=== PATIENT | female | born 1990 | race Caucasian/White ===

== ENCOUNTER 2023-03-01 23:38 | Emergency (ER) | payer OTHER ==
[~2023-03-01] VITALS: Ht 157.5 cm; Wt 102.1 kg
[2023-03-01 23:41] VITALS: O2SAT 98
--- NOTE | 2023-03-01 23:54 | NUR ---
Dr. Young at bedside exam in progress.
--- NOTE | 2023-03-01 23:54 | NUR ---
HR 86 SBP of 116/80, RR 16. patient barely responding to questions.
[2023-03-02] MEDS ORDERED: LORA0.5T48 PO
[2023-03-02] MEDS ORDERED: LORAZEPAM 0.5 MG TABLET PO ONE
[2023-03-02] MEDS ORDERED: LORAZEPAM 1 MG TABLET ONE (00:05)
--- NOTE | 2023-03-02 00:11 | NUR ---
DCD instructions given to pt. who verbalized understanding.
--- NOTE | 2023-03-02 00:19 | NUR ---
Patient left room ambulatory steady gait. Post medicated. vitals stable no c/of pain.
== END 2023-03-02 00:19 | disposition home or self-care (01) ==
LOC: ER 23:42
DX: F41.1 Generalized anxiety disorder (principal); F43.0 Acute stress reaction; Z79.899 Other long term (current) drug therapy
CPT/HCPCS: A4663